=== PATIENT | female | born 1945 | race Caucasian/White ===

== ENCOUNTER 2019-03-15 09:23 | Day surgery (SDC) | payer MEDICARE, OTHER ==
[~2019-03-15] VITALS: Ht 162.6 cm; Wt 47.2 kg
[~2019-03-15 09:23] MED LIST: ATARAX 25 MG TA25 MG PO; BUPROPION XL150 MG PO; CARAFATE1 G PO; LANOXIN125 MCG PO; LIPITOR10 MG PO; NEURONTIN 300300 MG PO; PROTONIX40 MG PO; TAZTIA XT360 MG PO
[2019-03-15 10:19] LABS: BASOPHILS 0.2 % (0-2); EOSINOPHILS 1.8 % (0-7); HEMATOCRIT 42.4 % (36.0-48.0); HEMOGLOBIN 14.1 g/dL (12-16); IMMATURE GRANULOCYTES 0.5 % (0-5); LYMPHOCYTES 30.5 % (15-50); MCH 28.9 pg (26.0-34.0); MCHC 33.3 g/dL (31.0-37.0); MCV 86.9 fL (80.0-100.0); MEAN PLATELET VOLUME 9.9 fL (7.4-10.4); MONOCYTES 6.2 % (2-11); NEUTROPHILS 60.8 % (40-80); PLATELET COUNT 267 10x3/uL (130-400); RBC 4.88 10x6/uL (4.00-5.40); WBC 6.3 10x3/uL (4.8-10.8)
[2019-03-15 10:48] LABS: APTT 29.5 SECONDS (22.8-39.4); INR 0.93 (0.85-1.17)
[2019-03-15 11:49] VITALS: BP 128/70; Ht 162.6 cm; Wt 47.2 kg
[2019-03-15] MEDS ORDERED: HYDROCODON-ACE1 EAC7 PO (13:44)
--- NOTE | 2019-03-15 15:53 | NUR ---
PT DC INSTRUCTIONS REVIEWED AT THIS TIME, PT VERBALIZES UNDERSTANDING. PT IV REMOVED AT THIS TIME, INTACT, NO REDNESS OR SWELLING NOTED AT SITE.
--- NOTE | 2019-03-15 16:06 | NUR ---
PT LEAVING OPS AT THIS TIME VIA WC. NO ACUTE DISTRESS NOTED.
== END 2019-03-15 14:00 | disposition home or self-care (01) ==
LOC: D.OPS 09:23
PROVIDERS: Anesthesiology; ATTEND Surgery
DX: C15.9 Malignant neoplasm of esophagus, unspecified (principal)